=== PATIENT | female | born 1965 | race Caucasian/White ===

== ENCOUNTER → 2016-06-08 | Outpatient (CLI) | payer OTHER | END | disposition home or self-care (01) | LOC: RAD 09:21 | PROVIDERS: ATTEND Family Medicine | DX: E04.1 Nontoxic single thyroid nodule (principal) | CPT/HCPCS: 76942; 88172; 88173 ==

== ENCOUNTER 2017-12-22 19:08 | Observation (INO) | payer OTHER ==
[~2017-12-22] VITALS: Ht 165.1 cm; Wt 97.0 kg
[~2017-12-22 19:08] MED LIST: ALPR-475 PO; ASPI81TA50 PO; CHLO25TA PO; LOSA50TA7 PO; METO50TA82 PO; ROSU40TA PO
[2017-12-22] MEDS ORDERED: NITROGLYCERIN SINGLE TAB 0.4 MG SL ONE (19:17)
[2017-12-22] MEDS ORDERED: SODIUM CHLORIDE FLUSH 10ML SYR IVF ONE (19:30)
[2017-12-22] MEDS ORDERED: NITROGLYCERIN SINGLE TAB 0.4 MG SL PRN (19:30)
[2017-12-22] MEDS ORDERED: ACETAMINOPHEN 325 MG TABLET PO ONE (19:30)
[2017-12-22] MEDS ORDERED: ACETAMINOPHEN 325 MG TABLET ONE (19:42)
[2017-12-22 20:04] LABS: BASOPHILS # (AUTO) 0.05 x10^3/uL (0-0.1); BASOPHILS % (AUTO) 1 % (0-1); EOSINOPHILS # (AUTO) 0.57 x10^3/uL (0-0.4); EOSINOPHILS % (AUTO) 10 % (1-7); LYMPHOCYTES # (AUTO) 2.18 x10^3/uL (1-3.4); LYMPHOCYTES % (AUTO) 37 % (22-44); MD NO; MEAN CORPUSCULAR HEMOGLOBIN 26.4 pg (27.0-34.8); MEAN CORPUSCULAR HGB CONC 33.4 g/dL (32.4-35.8); MEAN CORPUSCULAR VOLUME 79.2 fL (80-100); MEAN PLATELET VOLUME 8.1 fL (7.4-10.4); MONOCYTES # (AUTO) 0.48 x10^3/uL (0.2-0.8); MONOCYTES % (AUTO) 8 % (2-9); NEUTROPHILS # (AUTO) 2.68 x10^3/uL (1.8-6.8); NEUTROPHILS % (AUTO) 45 % (42-75); PLATELET COUNT 261 x10^3/uL (130-400); RED BLOOD COUNT 5.18 x10^6/uL (3.82-5.3); RED CELL DISTRIBUTION WIDTH 16.5 % (9.6-15.2)
[2017-12-22 20:11] LABS: ALBUMIN 4.3 g/dL (3.4-5.0); ANION GAP 9 mmol/L (5-15); CALCIUM 9.1 mg/dL (8.5-10.1); CHLORIDE 109 mmol/L (98-107)
[2017-12-22 20:14] LABS: INTERNATIONAL NORMALIZED RATIO 1.15 (0.93-1.1); PROTHROMBIN TIME 11.9 Seconds (9.6-11.5)
[2017-12-22 20:16] LABS: ALANINE AMINOTRANSFERASE 63 U/L (12-78); ALKALINE PHOSPHATASE 103 U/L (45-117); BILIRUBIN,TOTAL 1.1 mg/dL (0.2-1.0); CREATININE 0.65 mg/dL (0.55-1.02); TROPONIN I < 0.015 ng/mL (0.000-0.045)
[2017-12-22] MEDS ORDERED: OMNIPAQUE 350 MG/ML, 100ML BOTTLE ONE (21:28)
[2017-12-23] VITALS (10 sets, daily range): BP systolic 137–182; BP diastolic 83–97
[2017-12-23] MEDS ORDERED: SODIUM CHLORIDE FLUSH 10ML SYR IVF PRN
[2017-12-23] MEDS ORDERED: POTASSIUM CHLORIDE 20 MEQ TAB.ER.PRT PO ONE ×2 (00:30→15:30)
[2017-12-23] MEDS ORDERED: POLYETHYLENE GLYCOL 17 GM PACKET PO PRN (00:30)
[2017-12-23] MEDS ORDERED: NITROGLYCERIN 0.4 MG BOTTLE (25 TABS) SL PRN (00:30)
[2017-12-23] MEDS ORDERED: ONDANSETRON ODT 4 MG PO PRN (00:30)
[2017-12-23] MEDS ORDERED: morphine SULFATE 10 MG/ML, 1ML IVPush PRN (00:30)
[2017-12-23] MEDS ORDERED: CHLORTHALIDONE 25 MG TABLET PO PRN (00:30)
[2017-12-23] MEDS ORDERED: BISACODYL 10 MG SUPP PR PRN (00:30)
[2017-12-23] MEDS ORDERED: hydrALAzine 20 MG/ML, 1ML IVPush PRN (00:30)
[2017-12-23] MEDS: ATORVASTATIN 80 MG TABLET PO SCH ×2 (00:58→20:16)
[2017-12-23] MEDS: ANASTROZOLE 1 MG HOMEMEDPO SCH ×2 (01:00→20:11)
[2017-12-23 02:49] LABS: BASOPHILS # (AUTO) 0.05 x10^3/uL (0-0.1); BASOPHILS % (AUTO) 1 % (0-1); EOSINOPHILS # (AUTO) 0.63 x10^3/uL (0-0.4); EOSINOPHILS % (AUTO) 10 % (1-7); LYMPHOCYTES # (AUTO) 2.42 x10^3/uL (1-3.4); LYMPHOCYTES % (AUTO) 38 % (22-44); MD NO; MEAN CORPUSCULAR HEMOGLOBIN 26.5 pg (27.0-34.8); MEAN CORPUSCULAR HGB CONC 33.9 g/dL (32.4-35.8); MEAN CORPUSCULAR VOLUME 78.2 fL (80-100); MEAN PLATELET VOLUME 7.9 fL (7.4-10.4); MONOCYTES % (AUTO) 9 % (2-9); NEUTROPHILS # (AUTO) 2.65 x10^3/uL (1.8-6.8); NEUTROPHILS % (AUTO) 42 % (42-75); PLATELET COUNT 262 x10^3/uL (130-400); RED BLOOD COUNT 5.29 x10^6/uL (3.82-5.3); RED CELL DISTRIBUTION WIDTH 16.2 % (9.6-15.2)
[2017-12-23 02:58] LABS: ALBUMIN 4.3 g/dL (3.4-5.0); ANION GAP 9 mmol/L (5-15); CALCIUM 9.2 mg/dL (8.5-10.1); CHLORIDE 105 mmol/L (98-107)
[2017-12-23 03:01] LABS: ALANINE AMINOTRANSFERASE 66 U/L (12-78); ALKALINE PHOSPHATASE 105 U/L (45-117); BILIRUBIN,TOTAL 0.9 mg/dL (0.2-1.0); CHOL/HDL RATIO 3.5; CHOLESTEROL, TOTAL 170 mg/dL (140-239); CREATININE 0.68 mg/dL (0.55-1.02); HDL CHOL % 28 % (28-40); HDL CHOLESTEROL (DIRECT) 48 mg/dL (40-60); LDL CHOLESTEROL,CALCULATED 107 mg/dL (54-169); LDL/HDL RATIO 2.2 (0.5-3.0); TRIGLYCERIDES 75 mg/dL (50-200); TROPONIN I < 0.015 ng/mL (0.000-0.045); VLDL CHOLESTEROL 15 mg/dL (0-25)
[2017-12-23 03:07] LABS: FREE T4 (FREE THYROXINE) 0.99 ng/dL (0.76-1.46)
[2017-12-23] MEDS ORDERED: ASPIRIN 325 MG TABLET EC PO SCH (06:00)
[2017-12-23 08:13] LABS: TROPONIN I < 0.015 ng/mL (0.000-0.045)
[2017-12-23] MEDS ORDERED: METOPROLOL TARTRATE 50 MG TABLET PO SCH (09:00)
[2017-12-23] MEDS: SENNA/DOCUSATE TABLET PO SCH (09:00)
[2017-12-23] MEDS: LOSARTAN 50MG TABLET PO SCH ×2 (09:27→20:16)
[2017-12-23] MEDS: ASPIRIN 81 MG TABLET CHEW PO SCH (09:27)
[2017-12-23] MEDS: CHLORTHALIDONE 25 MG TABLET PO SCH (09:28)
[2017-12-23] MEDS: SODIUM CHLORIDE FLUSH 10ML SYR IVF SCH ×2 (09:28→20:16)
[2017-12-23] MEDS: ACETAMINOPHEN 325 MG TABLET PO PRN ×4 (09:38→23:07)
[2017-12-23] MEDS: METOPROLOL TARTRATE 50 MG TABLET PO SCH ×2 (10:56→20:17)
[2017-12-24 00:52] VITALS: BP 146/88
[2017-12-24] MEDS: ACETAMINOPHEN 325 MG TABLET PO PRN ×2 (02:02→05:55)
[2017-12-24 03:25] LABS: ALBUMIN 4.1 g/dL (3.4-5.0); ANION GAP 8 mmol/L (5-15); CALCIUM 9.1 mg/dL (8.5-10.1); CHLORIDE 105 mmol/L (98-107); CREATININE 0.75 mg/dL (0.55-1.02)
[2017-12-24] MEDS ORDERED: POTASSIUM CHLORIDE 20 MEQ TAB.ER.PRT PO ONE (07:00)
[2017-12-24 07:50] VITALS: BP 137/89
[2017-12-24] MEDS ORDERED: REGADENOSON 0.4 MG/5 ML SYRINGE ONE (08:45)
[2017-12-24] MEDS: LOSARTAN 50MG TABLET PO SCH (08:52)
[2017-12-24] MEDS: ASPIRIN 81 MG TABLET CHEW PO SCH (08:52)
[2017-12-24] MEDS: METOPROLOL TARTRATE 50 MG TABLET PO SCH (08:52)
[2017-12-24] MEDS: SENNA/DOCUSATE TABLET PO SCH (09:00)
[2017-12-24] MEDS: CHLORTHALIDONE 25 MG TABLET PO SCH (12:29)
[2017-12-24] MEDS: SODIUM CHLORIDE FLUSH 10ML SYR IVF SCH (13:32)
[2017-12-24 14:49] VITALS: BP 130/86
[2017-12-24] MEDS ORDERED: POTA20TA89 PO (16:59)
[2017-12-24] MEDS ORDERED: METO50TA82 PO (16:59)
[2017-12-24] MEDS ORDERED: CHLO25TA PO (16:59)
== END 2017-12-24 18:23 | disposition home or self-care (01) ==
LOC: ED 22:35 → INTOOBSV 23:37 → EDIP 23:37 → 5SO 12-23 00:26
PROVIDERS: ADMIT Family Medicine; ATTEND Family Medicine
DX: R07.89 Other chest pain (principal); I16.0 Hypertensive urgency; E78.5 Hyperlipidemia, unspecified; E66.9 Obesity, unspecified; E07.9 Disorder of thyroid, unspecified; I10 Essential (primary) hypertension; Z79.82 Long term (current) use of aspirin; Z79.899 Other long term (current) drug therapy; Z85.3 Personal history of malignant neoplasm of breast
CPT/HCPCS: 36415; 70450; 70551; 71045; 71275; 78452; 80048; 80053; 80061; 82040; 82728; 83540; 83550; 83735; 83880; 84439; 84443; 84484; 85025; 85610; 85730; 93005; 93017; 93306; 93975; 99285; A9502; C9898; G0378; J2785; Q9967